=== PATIENT | male | born 1960 | race Hispanic/Latino ===

== ENCOUNTER 2019-06-10 10:42 | Inpatient (IN) | payer SELFPAY ==
[~2019-06-10] VITALS: Ht 182.9 cm; Wt 105.2 kg
[2019-06-10] MEDS ORDERED: ONDANSETRON HCL 4 MG/2 ML VIAL ONE (11:11)
[2019-06-10] MEDS ORDERED: KETOROLAC TROMETHAMINE 30MG/ML ONE (11:11)
[2019-06-10 11:25] LABS: BASOPHILS % (AUTO) 1.2 % (0.0-5.0); EOSINOPHILS % (AUTO) 3.2 % (0.0-8.0); HEMATOCRIT 42.7 % (42-54); LYMPHOCYTES % (AUTO) 22.9 % (21.0-51.0); MEAN CORPUSCULAR HEMOGLOBIN 25.5 pg (27.0-33.0); MEAN CORPUSCULAR HGB CONC 33.3 g/dL (32.0-36.0); MEAN CORPUSCULAR VOLUME 76.5 fL (79-99); NEUTROPHILS % (AUTO) 61.7 % (40.0-77.0); PLATELET COUNT (AUTO) 233 K/uL (130-400); RED BLOOD CELL COUNT(AUTO) 5.58 MIL/uL (4.50-6.20); RED CELL DISTRIBUTION WIDTH 15.8 % (11.0-15.5); WHITE BLOOD COUNT (AUTO) 8.4 K/uL (4.8-10.8)
[2019-06-10 11:30] LABS: CREATININE 1.6 mg/dL (0.5-1.5); POTASSIUM 3.8 mmol/L (3.5-5.1)
[2019-06-10 11:46] LABS: BILIRUBIN,DIRECT 0.1 mg/dL (0.0-0.3); BILIRUBIN,TOTAL 0.5 mg/dL (0.2-1.0); TOTAL PROTEIN, SERUM 6.9 g/dL (6.0-8.3)
[2019-06-10 13:36] LABS: APPEARANCE,URINE CLEAR (CLEAR); BILIRUBIN,URINE SMALL (NEGATIVE); COLOR,URINE YELLOW (YELLOW); GLUCOSE, URINE (UA) NEGATIVE (NEGATIVE); KETONES,URINE NEGATIVE (NEGATIVE); LEUKOCYTE ESTERASE ,URINE TRACE (NEGATIVE); NITRATE,URINE NEGATIVE (NEGATIVE); OCCULT BLOOD,URINE TRACE-INTACT (NEGATIVE); PROTEIN,URINE TRACE mg/dL (NEGATIVE)
[2019-06-10 13:44] LABS: BACTERIA,URINE Few /HPF (None Seen); RBC,URINE 0-1 /HPF (0-1); SQUAMOUS EPITHELIAL CELL,UR Rare /HPF (0-2)
[2019-06-10 13:45] LABS: AMORPHOUS SEDIMENT,UR Moderate /LPF (None Seen); MUCUS,URINE Few LPF (None Seen)
[2019-06-10] MEDS ORDERED: ACETAMINOPHEN 325 MG TAB PO PRN (16:15)
[2019-06-10] MEDS ORDERED: MORPHINE SULFATE 2 MG/ML 1ML SYG IV PRN (16:15)
[2019-06-10] MEDS ORDERED: ONDANSETRON HCL 4 MG/2 ML VIAL IV PRN (16:15)
[2019-06-10] MEDS ORDERED: HYDROCODONE/ACETAMINOPHEN 5/325 MG TAB PO PRN (16:15)
[2019-06-10] MEDS ORDERED: LACTULOSE 20 GM/30 ML UDCUP PO PRN (16:15)
[2019-06-10] MEDS: SODIUM CHLORIDE 0.9% 1000ML 1,000 ML IV SCH (16:15)
[2019-06-10] MEDS ORDERED: ENOXAPARIN SODIUM 30 MG/0.3 ML SQ ONE (17:05)
[2019-06-10] MEDS ORDERED: FAMOTIDINE/PF 20 MG/2 ML VIAL IV ONE (17:05)
[2019-06-10] MEDS ORDERED: SODIUM CHLORIDE 0.9% 1000ML 1,000 ML IV ONE (17:06)
[2019-06-10] MEDS: FAMOTIDINE/PF 20 MG/2 ML VIAL IV SCH (21:00)
[2019-06-10] MEDS ORDERED: MORPHINE SULFATE 2 MG/ML 1ML SYG ONE (23:52)
[2019-06-11 01:10] VITALS: BP 171/99
[2019-06-11 04:00] VITALS: BP 132/79
[2019-06-11 04:30] LABS: EOSINOPHILS % (AUTO) 4.2 % (0.0-8.0); HEMATOCRIT 39.1 % (42-54); LYMPHOCYTES % (AUTO) 27.3 % (21.0-51.0); MEAN CORPUSCULAR HGB CONC 33.3 g/dL (32.0-36.0); MONOCYTES % (AUTO) 9.5 % (3.0-13.0); PLATELET COUNT (AUTO) 190 K/uL (130-400); RED CELL DISTRIBUTION WIDTH 16.1 % (11.0-15.5); WHITE BLOOD COUNT (AUTO) 7.3 K/uL (4.8-10.8)
[2019-06-11 04:45] LABS: CREATININE 1.6 mg/dL (0.5-1.5); POTASSIUM 3.6 mmol/L (3.5-5.1)
[2019-06-11] MEDS: SODIUM CHLORIDE 0.9% 1000ML 1,000 ML IV SCH (06:33)
[2019-06-11 07:30] VITALS: BP 177/98
--- NOTE | 2019-06-11 09:00 | NUR ---
CALLED AND SPOKE WITH SHANNAN FROM DR. MASON'S REGARDING CONSULT WITH PATIENT. SHANNAN REPORTS THEY RECEIVED THE CONSULT ALREADY. ASKED REGARDING NPO STATUS AND SHE SAID THAT WOULD BE UP TO PT'S PRIMARY DOCTOR'S DISCRETION.
[2019-06-11 11:00] VITALS: BP 160/100
[2019-06-11] MEDS: FAMOTIDINE/PF 20 MG/2 ML VIAL IV SCH ×2 (11:23→23:03)
[2019-06-11] MEDS: ENOXAPARIN SODIUM 30 MG/0.3 ML SQ SCH (11:24)
--- NOTE | 2019-06-11 12:05 | NUR ---
DCP CM met with pt discussed dc plans. Pt is independent prior to admission, lives at home with sister. Denies any equipments/services. Pt feels safe to go back home, still works and drives, sister able to assist with transportation and needs as necessary. DC plan to home once stable. CM to cont to follow up. Addendum: 06/11/19 at 1210 by MER IVERSON LVN CM Amended: Links added.
[2019-06-11 16:00] VITALS: BP 167/95
[2019-06-11] MEDS: HYDRALAZINE HCL 20 MG/ML VIAL IV PRN (17:50)
--- NOTE | 2019-06-11 18:55 | NUR ---
CALLED DR. MASON'S SERVICE TO HAVE PAGED WAITING FOR CALL BACK FROM DR. MASON'S OFFICE TO INQUIRE IF COMING TO SEE PATIENT. WILL CONTINUE TO MONITOR.
[2019-06-11 20:00] VITALS: BP 136/94
[2019-06-12] VITALS: BP 149/106
[2019-06-12 04:00] VITALS: BP 133/98
[2019-06-12 05:52] LABS: BASOPHILS % (AUTO) 1.3 % (0.0-5.0); EOSINOPHILS % (AUTO) 1.9 % (0.0-8.0); HEMATOCRIT 42.3 % (42-54); MEAN CORPUSCULAR HEMOGLOBIN 25.6 pg (27.0-33.0); MEAN CORPUSCULAR HGB CONC 33.5 g/dL (32.0-36.0); MEAN CORPUSCULAR VOLUME 76.4 fL (79-99); MONOCYTES % (AUTO) 8.7 % (3.0-13.0); NEUTROPHILS % (AUTO) 69.1 % (40.0-77.0); PLATELET COUNT (AUTO) 255 K/uL (130-400); RED BLOOD CELL COUNT(AUTO) 5.53 MIL/uL (4.50-6.20); WHITE BLOOD COUNT (AUTO) 8.4 K/uL (4.8-10.8)
[2019-06-12 06:26] LABS: ALBUMIN 3.6 g/dL (3.5-5.0); BILIRUBIN,TOTAL 0.7 mg/dL (0.2-1.0); CREATININE 1.5 mg/dL (0.5-1.5); POTASSIUM 3.8 mmol/L (3.5-5.1); TOTAL PROTEIN, SERUM 6.9 g/dL (6.0-8.3)
[2019-06-12 07:40] VITALS: BP 169/106
[2019-06-12] MEDS: ENOXAPARIN SODIUM 30 MG/0.3 ML SQ SCH (08:36)
[2019-06-12] MEDS: HYDRALAZINE HCL 20 MG/ML VIAL IV PRN ×2 (08:42→19:33)
[2019-06-12] MEDS: FAMOTIDINE/PF 20 MG/2 ML VIAL IV SCH ×2 (08:42→22:30)
[2019-06-12 11:00] VITALS: BP 168/89
[2019-06-12] MEDS: SODIUM CHLORIDE 0.9% 1000ML 1,000 ML IV SCH ×2 (11:09→22:31)
[2019-06-12 13:23] LABS: CREATININE 1.5 mg/dL (0.5-1.5); POTASSIUM 3.6 mmol/L (3.5-5.1)
[2019-06-12] MEDS ORDERED: IOHEXOL 350 MG/ML 100ML INFUS..BTL IV ONE (14:54)
[2019-06-12] MEDS ORDERED: TAMSULOSIN HCL 0.4 MG CAP.ER.24H PO SCH (18:00)
[2019-06-12 19:20] VITALS: BP 166/109
--- NOTE | 2019-06-12 22:00 | NUR ---
NOTE NO CALLED BACK YET FROM DR MASON FROM [facility]. CONTACTED SERVICE TO REPAGE. (REGARDING RESULTS OF IVP).
[2019-06-13] VITALS (14 sets, daily range): BP systolic 116–169; BP diastolic 50–99
[2019-06-13 06:18] LABS: BASOPHILS % (AUTO) 0.9 % (0.0-5.0); EOSINOPHILS % (AUTO) 1.2 % (0.0-8.0); HEMATOCRIT 43.4 % (42-54); LYMPHOCYTES % (AUTO) 16.5 % (21.0-51.0); MEAN CORPUSCULAR HEMOGLOBIN 25.4 pg (27.0-33.0); MEAN CORPUSCULAR HGB CONC 33.2 g/dL (32.0-36.0); MEAN CORPUSCULAR VOLUME 76.7 fL (79-99); MONOCYTES % (AUTO) 9.3 % (3.0-13.0); NEUTROPHILS % (AUTO) 72.1 % (40.0-77.0); PLATELET COUNT (AUTO) 250 K/uL (130-400); RED BLOOD CELL COUNT(AUTO) 5.66 MIL/uL (4.50-6.20); RED CELL DISTRIBUTION WIDTH 15.8 % (11.0-15.5); WHITE BLOOD COUNT (AUTO) 9.2 K/uL (4.8-10.8)
[2019-06-13 06:35] LABS: ALBUMIN 3.5 g/dL (3.5-5.0); BILIRUBIN,TOTAL 0.5 mg/dL (0.2-1.0); CREATININE 1.6 mg/dL (0.5-1.5); POTASSIUM 3.8 mmol/L (3.5-5.1); TOTAL PROTEIN, SERUM 6.8 g/dL (6.0-8.3)
[2019-06-13] MEDS: ENOXAPARIN SODIUM 30 MG/0.3 ML SQ SCH (09:00)
[2019-06-13] MEDS: FAMOTIDINE/PF 20 MG/2 ML VIAL IV SCH (09:00)
[2019-06-13 12:49] LABS: INR 0.99 (0.85-1.15); PARTIAL THROMBOPLASTIN TIME 29.4 SEC (26.3-35.5); PROTHROMBIN TIME 10.4 SEC (9.6-11.6)
[2019-06-13] MEDS ORDERED: IODIXANOL 320 MG/ML 100 ML VIAL ONE (13:08)
[2019-06-13] MEDS ORDERED: LIDOCAINE HCL 1% MDV 50ML VIAL ONE (13:08)
[2019-06-13] MEDS ORDERED: MIDAZOLAM HCL 1 MG/ML 2ML VIAL ONE (13:23)
[2019-06-13] MEDS ORDERED: FENTANYL CITRATE PF 50 MCG/1 ML 2ML VIAL ONE (13:23)
[2019-06-13] MEDS: SODIUM CHLORIDE 0.9% 1000ML 1,000 ML IV SCH (15:45)
[2019-06-13] MEDS ORDERED: CEPH500B PO (18:59)
[2019-06-13] MEDS ORDERED: AMLO5TAB4 PO (18:59)
[2019-06-14] MEDS ORDERED: AMLODIPINE BESYLATE 5 MG TAB PO SCH (09:00)
== END 2019-06-13 20:49 | disposition home or self-care (01) | DRG 694 ==
LOC: EDH 10:42 → EDHIP 10:43 → 4CH 23:48
PROVIDERS: ADMIT Family Medicine; ATTEND Family Medicine
PROC: 0T903ZZ Drainage of Right Kidney, Percutaneous Approach (ICD-10-PCS; principal; 2019-06-13)
DX: N13.2 Hydronephrosis with renal and ureteral calculous obstruction (principal); K57.90 Diverticulosis of intestine, part unspecified, without perforation or abscess without bleeding; N17.9 Acute kidney failure, unspecified; K80.20 Calculus of gallbladder without cholecystitis without obstruction; K82.8 Other specified diseases of gallbladder; E66.01 Morbid (severe) obesity due to excess calories; I12.9 Hypertensive chronic kidney disease with stage 1 through stage 4 chronic kidney disease, or unspecified chronic kidney disease; N18.3 Chronic kidney disease, stage 3 (moderate); Z68.31 Body mass index [BMI] 31.0-31.9, adult
CPT/HCPCS: 10030; 36415; 50432; 74018; 74176; 74400; 80048; 80053; 80076; 81001; 83036; 83690; 84153; 84484; 85025; 85610; 85730; 93005; 99156; 99157; C1769; C1894; G0378; J0360; J1644; J1650; J1885; J2250; J2405; J3010; J3490; J7030; Q9967

== ENCOUNTER 2019-06-24 08:50 | Emergency (ER) | payer SELFPAY ==
[~2019-06-24 08:50] MED LIST: AMLO5TAB4 PO; CEPH500B PO
[2019-06-24] MEDS ORDERED: KETOROLAC TROMETHAMINE 30MG/ML ONE (09:15)
[2019-06-24] MEDS ORDERED: ONDANSETRON HCL 4 MG/2 ML VIAL ONE (09:15)
[2019-06-24] MEDS ORDERED: SODIUM CHLORIDE 0.9% 1000ML 1,000 ML IV ONE (09:16)
[2019-06-24 09:17] LABS: BASOPHILS % (AUTO) 1.1 % (0.0-5.0); EOSINOPHILS % (AUTO) 3.3 % (0.0-8.0); HEMATOCRIT 43.8 % (42-54); MEAN CORPUSCULAR HEMOGLOBIN 26.6 pg (27.0-33.0); MEAN CORPUSCULAR HGB CONC 34.2 g/dL (32.0-36.0); MEAN CORPUSCULAR VOLUME 77.8 fL (79-99); MONOCYTES % (AUTO) 10.1 % (3.0-13.0); NEUTROPHILS % (AUTO) 57.5 % (40.0-77.0); PLATELET COUNT (AUTO) 308 K/uL (130-400); RED BLOOD CELL COUNT(AUTO) 5.64 MIL/uL (4.50-6.20); RED CELL DISTRIBUTION WIDTH 15.5 % (11.0-15.5); WHITE BLOOD COUNT (AUTO) 7.3 K/uL (4.8-10.8)
[2019-06-24 09:24] LABS: CREATININE 1.5 mg/dL (0.5-1.5)
[2019-06-24 09:24] LABS: AMPHET/METH SCREEN,URINE NEGATIVE (NEGATIVE); BARBITURATE SCREEN, URINE NEGATIVE (NEGATIVE); BENZODIAZEPINES SCREEN,URINE NEGATIVE (NEGATIVE); CANNABINOID SCREEN,URINE NEGATIVE (NEGATIVE); COCAINE SCREEN,URINE POSITIVE (NEGATIVE); OPIATE SCREEN,URINE NEGATIVE (NEGATIVE); PHENCYCLIDINE SCREEN,URINE NEGATIVE (NEGATIVE)
[2019-06-24 09:29] LABS: BILIRUBIN,DIRECT 0.1 mg/dL (0.0-0.3); BILIRUBIN,TOTAL 0.5 mg/dL (0.2-1.0); TOTAL PROTEIN, SERUM 7.4 g/dL (6.0-8.3)
== END 2019-06-24 12:32 | disposition home or self-care (01) ==
LOC: EDH 08:50
DX: K80.50 Calculus of bile duct without cholangitis or cholecystitis without obstruction (principal); Z87.442 Personal history of urinary calculi
CPT/HCPCS: 36415; 76705; 80048; 80076; 80305; 83690; 85025; 96374; 96375; 99285; J1885; J2405; J7030

== ENCOUNTER 2019-07-10 17:35 | Emergency (ER) | payer SELFPAY ==
[2019-07-10 18:09] LABS: BASOPHILS % (AUTO) 0.7 % (0.0-5.0); EOSINOPHILS % (AUTO) 1.3 % (0.0-8.0); HEMATOCRIT 40.7 % (42-54); LYMPHOCYTES % (AUTO) 16.9 % (21.0-51.0); MEAN CORPUSCULAR HEMOGLOBIN 25.6 pg (27.0-33.0); MEAN CORPUSCULAR HGB CONC 32.5 g/dL (32.0-36.0); MEAN CORPUSCULAR VOLUME 78.7 fL (79-99); MONOCYTES % (AUTO) 5.7 % (3.0-13.0); NEUTROPHILS % (AUTO) 75.4 % (40.0-77.0); PLATELET COUNT (AUTO) 342 K/uL (130-400); RED BLOOD CELL COUNT(AUTO) 5.17 MIL/uL (4.50-6.20); RED CELL DISTRIBUTION WIDTH 15.2 % (11.0-15.5); WHITE BLOOD COUNT (AUTO) 11.6 K/uL (4.8-10.8)
[2019-07-10 18:20] LABS: CREATININE 1.5 mg/dL (0.5-1.5); POTASSIUM 4.1 mmol/L (3.5-5.1)
[2019-07-10 18:24] LABS: APPEARANCE,URINE CLOUDY (CLEAR); BILIRUBIN,URINE NEGATIVE (NEGATIVE); COLOR,URINE YELLOW (YELLOW); GLUCOSE, URINE (UA) NEGATIVE (NEGATIVE); KETONES,URINE NEGATIVE (NEGATIVE); LEUKOCYTE ESTERASE ,URINE LARGE (NEGATIVE); NITRATE,URINE NEGATIVE (NEGATIVE); OCCULT BLOOD,URINE LARGE (NEGATIVE); PH,URINE 5.5 (5.0-8.0); PROTEIN,URINE 30 mg/dL (NEGATIVE); UROBILINOGEN,URINE 0.2 mg/dL (0.2-1.0)
[2019-07-10 18:35] LABS: BACTERIA,URINE Moderate /HPF (None Seen); MUCUS,URINE Few LPF (None Seen); WBC,URINE 26-50 /HPF (0-1)
[2019-07-10] MEDS ORDERED: CEFTRIAXONE SODIUM 1 GM ONE (21:06)
[2019-07-10] MEDS ORDERED: ONDANSETRON ODT 4 MG TAB ONE (21:06)
== END 2019-07-10 21:34 | disposition home or self-care (01) ==
LOC: EDH 17:35
DX: T83.092A Other mechanical complication of nephrostomy catheter, initial encounter (principal); Z87.442 Personal history of urinary calculi
CPT/HCPCS: 36415; 74176; 80048; 81001; 85025; 87077; 87088; 87186; 96374; 99285; J0696

== ENCOUNTER 2019-09-23 17:23 | Inpatient (IN) | payer SELFPAY ==
[~2019-09-23] VITALS: Ht 180.3 cm; Wt 105.6 kg
[2019-09-23 18:18] LABS: BASOPHILS % (AUTO) 0.7 % (0.0-5.0); EOSINOPHILS % (AUTO) 1.6 % (0.0-8.0); LYMPHOCYTES % (AUTO) 16.3 % (21.0-51.0); MEAN CORPUSCULAR HEMOGLOBIN 25.6 pg (27.0-33.0); MEAN CORPUSCULAR HGB CONC 31.3 g/dL (32.0-36.0); MEAN CORPUSCULAR VOLUME 81.7 fL (79-99); MONOCYTES % (AUTO) 7.7 % (3.0-13.0); NEUTROPHILS % (AUTO) 73.3 % (40.0-77.0); PLATELET COUNT (AUTO) 329 K/uL (130-400); RED BLOOD CELL COUNT(AUTO) 5.63 MIL/uL (4.50-6.20); RED CELL DISTRIBUTION WIDTH 13.7 % (11.0-15.5); WHITE BLOOD COUNT (AUTO) 13.5 K/uL (4.8-10.8)
[2019-09-23 18:21] LABS: APPEARANCE,URINE SL CLOUDY (CLEAR); BILIRUBIN,URINE NEGATIVE (NEGATIVE); COLOR,URINE YELLOW (YELLOW); GLUCOSE, URINE (UA) NEGATIVE (NEGATIVE); KETONES,URINE NEGATIVE (NEGATIVE); LEUKOCYTE ESTERASE ,URINE MODERATE (NEGATIVE); NITRATE,URINE NEGATIVE (NEGATIVE); OCCULT BLOOD,URINE MODERATE (NEGATIVE); PROTEIN,URINE TRACE mg/dL (NEGATIVE)
[2019-09-23 18:31] LABS: CREATININE 2.1 mg/dL (0.5-1.5)
[2019-09-23 18:33] LABS: WBC,URINE 26-50 /HPF (0-1)
[2019-09-23 18:34] LABS: BACTERIA,URINE Moderate /HPF (None Seen); CALCIUM OXALATE CRYSTALS,UR Few /LPF (None Seen); INR 0.95 (0.85-1.15); MUCUS,URINE Few LPF (None Seen); PARTIAL THROMBOPLASTIN TIME 28.5 SEC (26.3-35.5); SQUAMOUS EPITHELIAL CELL,UR 0-2 /HPF (0-2)
[2019-09-23 18:35] LABS: ALBUMIN 3.8 g/dL (3.5-5.0); BILIRUBIN,TOTAL 0.4 mg/dL (0.2-1.0); TOTAL PROTEIN, SERUM 7.6 g/dL (6.0-8.3)
[2019-09-23] MEDS ORDERED: TAMSULOSIN HCL 0.4 MG CAP.ER.24H ONE (19:07)
[2019-09-23] MEDS ORDERED: CEFTRIAXONE SODIUM 1 GM ONE (19:07)
[2019-09-23] MEDS ORDERED: KETOROLAC TROMETHAMINE 15MG/ML ONE (19:08)
[2019-09-23] MEDS ORDERED: SODIUM CHLORIDE 0.9% 1000ML 1,000 ML IV ONE (19:08)
[2019-09-23] MEDS ORDERED: LEVOFLOXACIN 500 MG/D5W 100 ML 100 ML IV SCH (20:45)
[2019-09-23] MEDS ORDERED: MORPHINE SULFATE 2 MG/ML 1ML SYG IV PRN (20:45)
[2019-09-23] MEDS ORDERED: ONDANSETRON HCL 4 MG/2 ML VIAL IV PRN (20:45)
[2019-09-23] MEDS ORDERED: MORPHINE SULFATE 4 MG/1ML SYG IV PRN (20:45)
[2019-09-23] MEDS ORDERED: ACETAMINOPHEN 325 MG TAB PO PRN ×2 (20:45)
[2019-09-23] MEDS ORDERED: NITROGLYCERIN 0.4 MG SL TAB SL PRN (20:45)
[2019-09-23] MEDS ORDERED: SODIUM CHLORIDE 0.9% 1000ML 1,000 ML IV SCH (20:45)
[2019-09-23] MEDS ORDERED: LEVOFLOXACIN 500 MG/D5W 100 ML 100 ML ONE (21:18)
[2019-09-23] MEDS ORDERED: FAMOTIDINE 20MG TAB 20 MG TAB ONE (21:18)
[2019-09-23] MEDS ORDERED: SODIUM CHLORIDE 0.9% 1000ML 2,000 ML IV ONE (21:19)
[2019-09-23 22:50] VITALS: BP 134/76
[2019-09-23] MEDS: SODIUM CHLORIDE 0.9% 1000ML 1,000 ML IV SCH (23:33)
[2019-09-24 04:00] VITALS: BP 130/77
[2019-09-24 05:12] LABS: HEMATOCRIT 38.5 % (42-54); MEAN CORPUSCULAR HEMOGLOBIN 25.8 pg (27.0-33.0); MEAN CORPUSCULAR HGB CONC 30.9 g/dL (32.0-36.0); MEAN CORPUSCULAR VOLUME 83.3 fL (79-99); PLATELET COUNT (AUTO) 261 K/uL (130-400); RED BLOOD CELL COUNT(AUTO) 4.62 MIL/uL (4.50-6.20); RED CELL DISTRIBUTION WIDTH 13.6 % (11.0-15.5); WHITE BLOOD COUNT (AUTO) 8.7 K/uL (4.8-10.8)
[2019-09-24 05:27] LABS: BAND NEUTROPHILS % (MANUAL) 14 % (0-2); BASOPHILS % (MANUAL) 8 % (0-2); EOSINOPHILS % (MANUAL) 2 % (1-6); LYMPHOCYTES % (MANUAL) 18 % (22-44); MAN.DIFF COMMENT-IMPRESSION MANUAL DIFFERENTIAL; MONOCYTES % (MANUAL) 8 % (2-9); PLATELET MORPHOLOGY COMMENT ADEQUATE; SEGMENTED NEUTROPHILS % 50 % (40-70)
[2019-09-24 05:37] LABS: ALBUMIN 2.8 g/dL (3.5-5.0); BILIRUBIN,TOTAL 0.5 mg/dL (0.2-1.0); CREATININE 1.6 mg/dL (0.5-1.5); TOTAL PROTEIN, SERUM 5.8 g/dL (6.0-8.3)
[2019-09-24] MEDS: SODIUM CHLORIDE 0.9% 1000ML 1,000 ML IV SCH ×2 (06:35→20:43)
--- NOTE | 2019-09-24 06:59 | NUR ---
Nursing Note Paged Dr. Rubin pending call back
[2019-09-24 08:00] VITALS: BP 151/95
[2019-09-24] MEDS: FAMOTIDINE 20MG TAB 20 MG TAB PO SCH (09:00)
[2019-09-24] MEDS: ENOXAPARIN SODIUM 30 MG/0.3 ML SQ SCH (09:54)
[2019-09-24 11:51] VITALS: BP 142/86
[2019-09-24] MEDS: ZOSYN 3.375GM+NS 50ML 50 ML IV SCH (12:37)
[2019-09-24 17:18] VITALS: BP 143/102
[2019-09-24 19:00] VITALS: BP 154/86
--- NOTE | 2019-09-24 20:11 | NUR ---
Nursing Note-Dr. Caryn Rubin spoke with pt. Order for placement of right nephrostomy tube with IR.
--- NOTE | 2019-09-24 20:28 | NUR ---
DR. MASON SPOKE WITH SIMRAN FROM DR. MASON'S OFFICE REGARDING PATIENT CONSULT. SHE COLLECTED INFORMATION ON PATIENT TO INCLUDE INSURANCE. SHE ADVISED SHE WOULD LET HIM KNOW OF THE CONSULT
[2019-09-24 23:00] VITALS: BP 129/76
[2019-09-25] VITALS (7 sets, daily range): BP systolic 137–155; BP diastolic 85–96
[2019-09-25] MEDS: ZOSYN 3.375GM+NS 50ML 50 ML IV SCH ×2 (00:12→10:32)
[2019-09-25] MEDS: SODIUM CHLORIDE 0.9% 1000ML 1,000 ML IV SCH ×2 (03:25→22:23)
[2019-09-25 05:42] LABS: EOSINOPHILS % (AUTO) 3.4 % (0.0-8.0); HEMATOCRIT 41.7 % (42-54); LYMPHOCYTES % (AUTO) 31.4 % (21.0-51.0); MEAN CORPUSCULAR HEMOGLOBIN 25.5 pg (27.0-33.0); MEAN CORPUSCULAR HGB CONC 30.9 g/dL (32.0-36.0); MEAN CORPUSCULAR VOLUME 82.4 fL (79-99); MONOCYTES % (AUTO) 9.4 % (3.0-13.0); NEUTROPHILS % (AUTO) 54.4 % (40.0-77.0); PLATELET COUNT (AUTO) 277 K/uL (130-400); RED BLOOD CELL COUNT(AUTO) 5.06 MIL/uL (4.50-6.20); RED CELL DISTRIBUTION WIDTH 13.7 % (11.0-15.5)
[2019-09-25 05:58] LABS: CREATININE 1.6 mg/dL (0.5-1.5); POTASSIUM 4.2 mmol/L (3.5-5.1)
--- NOTE | 2019-09-25 08:30 | NUR ---
HIDA scan done pending report
[2019-09-25] MEDS: FAMOTIDINE 20MG TAB 20 MG TAB PO SCH (09:00)
[2019-09-25] MEDS: ENOXAPARIN SODIUM 30 MG/0.3 ML SQ SCH (09:00)
[2019-09-25] MEDS ORDERED: IODIXANOL 320 MG/ML 100 ML VIAL ONE (09:18)
[2019-09-25] MEDS ORDERED: LIDOCAINE HCL 1% MDV 50ML VIAL ONE (09:19)
--- NOTE | 2019-09-25 09:45 | NUR ---
Nephrostomy tube placement rescheduled for tomorrow due to patient getting nuclear med for HIDA scan. As per nurse Bhakta from [employer].
--- NOTE | 2019-09-25 11:30 | NUR ---
DCP CM met with pt discussed dc plans. Pt is independent prior to admission, lives at home w/spouse. Denies any equipments/services. Feels safe to go back home, spouse and sister able to assist with transportation and needs as necessary. DC plan to home once stable. CM to cont to follow up. Addendum: 09/25/19 at 1131 by MER IVERSON LVN CM Amended: Links added.
[2019-09-25] MEDS ORDERED: HYDRALAZINE HCL 20 MG/ML VIAL IV PRN (21:00)
[2019-09-26] VITALS (13 sets, daily range): BP systolic 126–172; BP diastolic 66–114
[2019-09-26] MEDS: ZOSYN 3.375GM+NS 50ML 50 ML IV SCH ×2 (00:29→11:38)
[2019-09-26 06:10] LABS: CREATININE 1.5 mg/dL (0.5-1.5)
[2019-09-26] MEDS: FAMOTIDINE 20MG TAB 20 MG TAB PO SCH (09:00)
[2019-09-26] MEDS: ENOXAPARIN SODIUM 30 MG/0.3 ML SQ SCH (09:00)
--- NOTE | 2019-09-26 09:05 | NUR ---
TO PROCEDURE PATIENT TRANSPORTED TO GI LAB FOR NEPHROSTOMY TUBE PLACEMENT IN STABLE CONDITION.
[2019-09-26] MEDS ORDERED: LIDOCAINE HCL 2% 20ML ONE (09:19)
[2019-09-26] MEDS ORDERED: SODIUM BICARB 50MEQ 50ML VIAL ONE (09:19)
[2019-09-26] MEDS ORDERED: FENTANYL CITRATE PF 50 MCG/1 ML 2ML VIAL ONE (09:21)
[2019-09-26] MEDS ORDERED: MIDAZOLAM HCL 1 MG/ML 2ML VIAL ONE (09:21)
[2019-09-26] MEDS ORDERED: IOHEXOL-350 50ML VIAL IV ONE (09:25)
--- NOTE | 2019-09-26 10:39 | NUR ---
POST NEPHROSTOMY TUBE PATIENT RECEIVED FROM [facility] S/P RIGHT NEPHROSTOMY TUBE PLACEMENT. DRESSING TO RIGHT LOWER FLANK AREA IS CLEAN AND DRY. NO SIGNS OF BLEEDING AND NO C/O PAIN. POST OP VITAL SIGNS HAVE BEEN INITIATED. WILL CONTINUE TO MONITOR. URINE IN DRAINAGE BAG IS BLOOD TINGED.
[2019-09-26] MEDS: SODIUM CHLORIDE 0.9% 1000ML 1,000 ML IV SCH ×2 (11:13→21:52)
[2019-09-26] MEDS ORDERED: AMLODIPINE BESYLATE 5 MG TAB PO SCH (15:45)
[2019-09-27] MEDS: ZOSYN 3.375GM+NS 50ML 50 ML IV SCH (01:09)
[2019-09-27 03:35] VITALS: BP 133/85
[2019-09-27 04:27] LABS: EOSINOPHILS % (AUTO) 2.7 % (0.0-8.0); LYMPHOCYTES % (AUTO) 28.2 % (21.0-51.0); MEAN CORPUSCULAR HEMOGLOBIN 25.3 pg (27.0-33.0); MEAN CORPUSCULAR HGB CONC 31.3 g/dL (32.0-36.0); MEAN CORPUSCULAR VOLUME 80.7 fL (79-99); MONOCYTES % (AUTO) 8.6 % (3.0-13.0); NEUTROPHILS % (AUTO) 59.2 % (40.0-77.0); PLATELET COUNT (AUTO) 314 K/uL (130-400); WHITE BLOOD COUNT (AUTO) 7.8 K/uL (4.8-10.8)
[2019-09-27 04:40] LABS: CREATININE 1.3 mg/dL (0.5-1.5); POTASSIUM 3.6 mmol/L (3.5-5.1)
[2019-09-27] MEDS: SODIUM CHLORIDE 0.9% 1000ML 1,000 ML IV SCH (05:29)
[2019-09-27 07:54] VITALS: BP 156/90
[2019-09-27] MEDS: ENOXAPARIN SODIUM 30 MG/0.3 ML SQ SCH (09:00)
[2019-09-27] MEDS: FAMOTIDINE 20MG TAB 20 MG TAB PO SCH (09:00)
[2019-09-27] MEDS ORDERED: AMLODIPINE BESYLATE 5 MG TAB PO SCH (09:00)
[2019-09-27] MEDS ORDERED: AMLO5TAB9 PO (11:01)
[2019-09-27] MEDS ORDERED: CEPH500B PO (11:01)
[2019-09-27 11:41] VITALS: BP 143/89
--- NOTE | 2019-09-27 14:40 | NUR ---
Pt d/c home using teach back technique re; new meds, home meds, s/s to watch for and when to call md. Follow up with your primary doctor in 2-4 days. For transition of care. And to assess your nephrostomy tube site, dressing and patency of tubing to bag. Follow up with Dr. Rubin in 2 weeks. Call to set up an appointment at [phone]. If your nephrostomy tube comes out call your primary doctor. If fevers greater than 101.0 call your primary doctor. IV out intact, no bleeding, no s/s of a current infection. AAOX3, denies any needs at this time. No tele.
== END 2019-09-27 14:55 | disposition home or self-care (01) | DRG 690 ==
LOC: EDH 17:23 → EDHIP 17:24 → 3BH 22:45
PROVIDERS: ADMIT Internal Medicine; ATTEND Internal Medicine
PROC: 0T9030Z Drainage of Right Kidney with Drainage Device, Percutaneous Approach (ICD-10-PCS; principal; 2019-09-26)
DX: N13.6 Pyonephrosis (principal); N17.9 Acute kidney failure, unspecified; I12.9 Hypertensive chronic kidney disease with stage 1 through stage 4 chronic kidney disease, or unspecified chronic kidney disease; E11.22 Type 2 diabetes mellitus with diabetic chronic kidney disease; K80.20 Calculus of gallbladder without cholecystitis without obstruction; B96.4 Proteus (mirabilis) (morganii) as the cause of diseases classified elsewhere; K82.8 Other specified diseases of gallbladder; E66.9 Obesity, unspecified; N18.3 Chronic kidney disease, stage 3 (moderate); Z83.3 Family history of diabetes mellitus; Z82.49 Family history of ischemic heart disease and other diseases of the circulatory system; Z87.442 Personal history of urinary calculi; Z79.899 Other long term (current) drug therapy; Z68.32 Body mass index [BMI] 32.0-32.9, adult; Z91.19 Patient's noncompliance with other medical treatment and regimen; Z71.3 Dietary counseling and surveillance
CPT/HCPCS: 10030; 36415; 50432; 74176; 76705; 78226; 80048; 80053; 81001; 83605; 83690; 83735; 84145; 85025; 85610; 85730; 87040; 87077; 87088; 87186; 99156; 99157; A9537; C1729; C1894; G0378; J0360; J0696; J1644; J1650; J1885; J1956; J2250; J2543; J3010; J3490; J7030; Q9967

== ENCOUNTER → 2019-10-24 | Outpatient (CLI) | payer OTHER ==
[~2019-10-24] MED LIST changes: -AMLO5TAB4 PO; +AMLO5TAB9 PO
== END | disposition home or self-care (01) ==
LOC: RAH 13:58
PROVIDERS: ATTEND Urology
DX: N20.2 Calculus of kidney with calculus of ureter (principal); Z93.6 Other artificial openings of urinary tract status
CPT/HCPCS: 74018; 76100